=== PATIENT | male | born 1965 | race Caucasian/White ===

== ENCOUNTER 2016-09-01 22:26 | Emergency (ER) | payer SELFPAY ==
[~2016-09-01] VITALS: Ht 182.9 cm; Wt 81.8 kg
[2016-09-01 23:22] VITALS: BP 137/81; PULSE 80; RESP 16; O2SAT 97
--- NOTE | 2016-09-01 23:45 | ED.REPORT ---
HPI-General Illness Date of Service Sep 01, 2016 ED Provider: Brendan Wilkerson MD 50 y/o male with a hx of heroin and meth abuse presents to the ED due to heroin withdrawal. Pt states he feels like "crawling out of his skin". He reports injecting heroin yesterday at 2100. Pt says he plans to start on Suboxone and wants to be referred to rehab. He denies using any opiates in the last 24 hours. Nursing Notes Stated Complaint: OPIATE WITHDRAWL Chief Complaint: Substance Abuse Nursing Notes Reviewed: Yes Allergies: Coded Allergies: Penicillins (Verified Allergy, Unknown, 09/01/16) Scheduled Buprenorphine HCl/Naloxone HCl (Suboxone 8 mg-2 mg Sl Film) 1 Each Film 1 EACH SL BID General Time Seen by MD: 23:42 Chief Complaint Other (Heroin withdrawl) Hx Obtained From: Patient Arrived By: Walk-in Sudden in Onset?: Yes Onset Occurred: 21 - 23 hours ago Symptom Duration: Since onset Severity: Current: No pain currently Severity: Maximum: No pain Recent Healthcare: No recent doctor visit Similar Sx Previous: No Past Medical History Past Medical History none reported Past Surgical History none reported Smoking History Unknown if Ever Smoker Social History Drug Use: IV drugs, Meth Ambulatory Status Independent Review of Systems Heroin withdrawal Full Review of Systems GI: Reports: Nausea Complete sys rev & neg: except as marked. Physical Exam Vital Signs Vital Signs Date Time Temp Pulse Resp B/P Pulse Ox O2 Delivery O2 Flow Rate FiO2 09/01/16 23:22 36.9 80 16 137/81 97 Room Air Initial VS: Reviewed, Vital signs normal Head / Eyes: Atraumatic, Normocephalic, PERRL ENT: Mucous membranes moist, Conjunctiva normal, No scleral icterus Neck: Supple, Non-tender, Full range of motion Respiratory: Breath sounds normal, Clear to auscultation, No respiratory distress Cardiovascular: Regular rate & rhythm, Heart sounds normal, Intact distal pulses Abdomen / GI: Soft, Non-tender Skin: Atraumatic, Warm, Dry Track evans without active abscesses . Neurologic: Oriented X3, Speech NL, No motor deficits, No sensory deficits Abnormal Mood/Affect: Positive: Anxious Agitated Re-Eval/Medical Decision Med Decision/Clinical Course The patient has a long-term history of IV heroin abuse without specific complications. It has been greater than 24 hours since any heroin use, there is mild to moderate withdrawal. The patient was given 8 mg of buprenorphine sublingual here in the emergency room with relief. Follow-up at [facility] as soon as possible. Prescription was written for a 4 day supply of buprenorphine/naloxone 8/2 twice a day to last until the [facility] appointment. Time of Eval: 01:00 Re-Evaluation/Progress Note: Rechecked pt. Pt reports feeling better after medication. Discussed diagnosis. Informed the pt of the plan to discharge and referral to [facility]. Pt understands and agrees with plan. F/U instructions and RTER warning given. All questions addressed. Counseled Regarding: Diagnosis, Need for follow-up, When/why to return to ED Discharge & Departure Primary Impression: Opioid dependence with withdrawal Disposition: Home Discharge Condition All VS Reviewed: Yes Condition: Stable Patient Instructions: Buprenorphine/Naloxone (By mouth) Additional Instructions: Buprenorphine/naloxone (Suboxone) 8/2 film or tabs, one dissolved orally twice daily, #1 given in the emergency room and #10 prescription written. Call the [facility] Priority Access Line at [phone] for an appointment this week for continued maintenance treatment. Do not use any heroin or methamphetamine. Do not use alcohol or sedating medications with buprenorphine. Scribe Attestation Portions of this note were transcribed by Luis Alfredo Wolfe. I, , personally performed the history, physical exam and medical decision-making;I reviewed and confirmed the accuracy of the information in the transcribed note. Signed by Yamila Aragon. 09/02/16 [id number] Brendan Wilkerson MD Sep 01, 2016 23:45 Luis Alfredo Wolfe Sep 01, 2016 23:53
[2016-09-01] MEDS ORDERED: Buprenorphine 2 mg SL Tablet SL ONE (23:55)
[2016-09-02] MEDS ORDERED: BUPR1FIL3 SL (01:58)
== END 2016-09-02 02:14 | disposition home or self-care (01) ==
LOC: SED 22:26
DX: F11.23 Opioid dependence with withdrawal (principal); Z88.0 Allergy status to penicillin